=== PATIENT | male | born 1995 | race Caucasian/White ===

== ENCOUNTER 2020-12-08 15:07 | Emergency (ER) | payer OTHER ==
[~2020-12-08] VITALS: Ht 170.2 cm; Wt 95.3 kg
--- NOTE | ~2020-12-08 | EMS ---
[address] [place] [address] EMS Patient Care Report Name: FLORESITA LAGUERRE [id number] Admission: 12/08/20 Attend Phys: Discharge: Date of : [birth year] Report #: [id number] THIS REPORT FOR: //name// Report Transmitted: 12/08/2020 17:19 EMS Care Summary [facility] [place] Incident [id number] @ 12/08/2020 14:41 Incident Location [address] [place] [address] Patient Floresita Laguerre Male, 25 Years 1995 Patient Address [address] [place] [address] Patient History Migraine, unspecified, intractable, without status migrainosus, Patient Allergies No known allergies, Chief Complaint Headache Disposition Transported No Lights/[place] Dispatch Reason Psychiatric Problem/Abnormal Behavior/Suicide Attempt Transported To [facility] Narrative [facility] responded without delay to the [facility] [place] for a staged medical call. Arrived on scene without incident. Arrived to find the patient is a 25 Y/O male ambulating outside with police at his side. The patient is alert and oriented, GCS is documented. The patient is calm and cooperative with EMS staff. The patients airway is patent, breathing spontaneously with an adequate rate and depth. Circulation is present, skin condition is documented. The [address] [place] [address] EMS Patient Care Report Name: FLORESITA LAGUERRE Room: [facility]#: [id number] Admission: 12/08/20 Attend Phys: Discharge: Date of : [birth year] Report #: [id number] patient reports that he has a headache and also wants to kill himself. The patient reports that he has had a headache for several weeks. The patient denies any recent trauma to his head and reports that he is unsure why he has the pain. The patient reports that he thinks he has a history of migraines. The patient reports that he also feels like killing himself but does not have a plan. The patient reports that he started to feel suicidal today. The patient reports that he is not sure why he feels suicidal. The patient did not report any specific incident that triggered him to feel bad. The patient denies thoughts of wanting to harm others. The patient denies having visual or auditory hallucinations. The patient denies ever attempting to harm himself in the past but reports that he has felt suicidal in the past. The patient is assisted into the ambulance and placed on the cot. The patient is secured to the cot with all safety restraints and covered with a blanket for comfort. The patient is placed on the monitor to obtain vital signs. The patients vital signs and overall condition are monitored and remains stable during the entire transport. The patient denies any further complaints and continues to rest on the cot in no acute distress. The patients medical history is obtained and reviewed with the patient. Radio report called to [facility] without incident. Arrived at the receiving facility without incident. The patient is removed from the ambulance and escorted inside without incident. The patient is transferred from EMS cot to ER cart without incident. RN at the bedside to obtain report and assume care of the patient. RN requested nothing further. The patient remains in stable condition. [facility] cleared and returned to service. Initial Vitals @15:00Pain: 04/04, @14:43Pain: 03/05, @14:49SpO2: 99, @14:52SpO2: 99, @14:57SpO2: 100, @14:49P: 85,R: 17,BP: 116/77, @15:02P: 70,R: 17,BP: 112/56, @14:49GCS: 15, @15:02GCS: 15, @14:43 Assessments @14:43MENTAL:SKIN:HEENT:LUNG SOUNDS:ABDOMEN:PELVIS//GI:EXTREMITIES:PULSE:NEURO: [place] [address] EMS Patient Care Report Name: FLORESITA LAGUERRE Room: [facility]#: [id number] Admission: 12/08/20 Attend Phys: Discharge: Date of : [birth year] Report #: [id number] 14:38,Call Received 14:38,Dispatch Notified 14:38,Psap Call 14:41,Dispatched 14:41,En Route 14:41,On Scene 14:43,At Patient 14:43,BP: / M,PULSE: ,RR: R,SPO2: Ox,ETCO2: ,BG: ,PAIN: 4,GCS: , 14:43,BP: / M,PULSE: ,RR: R,SPO2: Ox,ETCO2: ,BG: ,PAIN: ,GCS: , 14:49,BP: / M,PULSE: ,RR: R,SPO2: 99 Ox,ETCO2: ,BG: ,PAIN: ,GCS: , 14:49,BP: 116/77 M,PULSE: 85,RR: 17 R,SPO2: Ox,ETCO2: ,BG: ,PAIN: ,GCS: , 14:49,BP: / M,PULSE: ,RR: R,SPO2: Ox,ETCO2: ,BG: ,PAIN: ,GCS: 15, 14:51,Depart Scene 14:52,BP: / M,PULSE: ,RR: R,SPO2: 99 Ox,ETCO2: ,BG: ,PAIN: ,GCS: , 14:57,BP: / M,PULSE: ,RR: R,SPO2: 100 Ox,ETCO2: ,BG: ,PAIN: ,GCS: , 15:00,BP: / M,PULSE: ,RR: R,SPO2: Ox,ETCO2: ,BG: ,PAIN: 5,GCS: , 15:02,BP: 112/56 M,PULSE: 70,RR: 17 R,SPO2: Ox,ETCO2: ,BG: ,PAIN: ,GCS: , 15:02,BP: / M,PULSE: ,RR: R,SPO2: Ox,ETCO2: ,BG: ,PAIN: ,GCS: 15, 15:04,At Destination 15:18,Call Closed Disclaimer v1.1 Copyright 2020 [email or web address] This EMS Care Summary contains data elements from the applicable legal record (which may be displayed differently). It is designed to provide pertinent information for the following purposes: continuity of care, clinical quality, and state data reporting. The complete legal record is available to ED staff and administrators of the receiving hospital in [employer] Patient Tracker. All data is provided "as is."
[~2020-12-08 15:07] MED LIST: NOHOMEMEDICATIONS
[2020-12-08 15:42] LABS: ABSOLUTE EOSINOPHILS 0.2 thou/uL (0.0-0.7); ABSOLUTE LYMPHOCYTES 1.4 thou/uL (0.8-5.3); ABSOLUTE MONOCYTES 0.2 thou/uL (0.0-1.2); ABSOLUTE NEUTROPHILS 3.9 thou/uL (1.6-8.1); BASOPHILS 0.7 %; EOSINOPHILS 3.5 %; HEMATOCRIT 41.4 % (42.0-52.0); HEMOGLOBIN 13.6 gm/dL (14.0-18.0); LYMPHOCYTES 24.5 %; MCH 28.7 pg (26.0-34.0); MCHC 32.8 g/dL (28.0-37.0); MCV 87.6 fL (80.0-100.0); MONOCYTES 4.2 %; MPV 7.5 fl. (7.2-11.1); NUCLEATED RBCS 0 /100WBC; PLATELET COUNT* 287 thou/uL (150-400); POLYS 67.1 %; RBC 4.73 mil/uL (4.50-6.00); RDW-CV 13.5 % (10.5-14.5); WBC 5.8 thou/uL (4.0-11.0)
[2020-12-08 15:53] LABS: CALCIUM 8.8 mg/dL (8.5-10.1); POTASSIUM 3.5 mmol/L (3.5-5.1)
[2020-12-08 15:57] LABS: ALBUMIN 3.8 g/dL (3.4-5.0); ALCOHOL < 10 mg/dL (<10); SALICYLATE < 2.8 mg/dL (2.8-20.0); TOTAL BILIRUBIN 0.3 mg/dL (<0.1-1.0); TOTAL PROTEIN 7.5 g/dL (6.4-8.2)
[2020-12-08 15:58] LABS: ACETAMINOPHEN < 2 ug/mL (10-30)
[2020-12-08 16:22] LABS: URINE BILIRUBIN NEGATIVE (Negative); URINE BLOOD NEGATIVE (Negative); URINE CLARITY CLEAR; URINE COLOR YELLOW; URINE GLUCOSE-RANDOM NEGATIVE (Negative); URINE KETONES NEGATIVE (Negative); URINE LEUKOCYTES-REFLEX NEGATIVE (Negative); URINE NITRITE-REFLEX NEGATIVE (Negative); URINE PROTEIN NEGATIVE (Negative); URINE SPECIFIC GRAVITY 1.025 (1.005-1.030); URINE UROBILINOGEN 0.2 E.U./dl (0.2-1.0)
[2020-12-08 16:31] LABS: AMP/METHAMP Negative (Negative); BARBITURATES Negative (Negative); BENZODIAZEPINES Negative (Negative); COCAINE Negative (Negative); METHADONE Negative (Negative); OPIATES Negative (Negative); PCP Negative (Negative); THC Negative (Negative)
[2020-12-08 21:51] VITALS: BP 120/67
== END 2020-12-08 21:51 | disposition home or self-care (01) ==
LOC: M.ERS 15:07
PROVIDERS: Emergency Medicine Emergency Medical Services
DX: R45.851 Suicidal ideations (principal)

== ENCOUNTER 2021-11-03 19:31 | Emergency (ER) | payer MEDICAID ==
[~2021-11-03] VITALS: Ht 170.2 cm; Wt 104.3 kg
[2021-11-03 20:26] LABS: INFLUENZA A ANTIGEN Negative (Negative); INFLUENZA B ANTIGEN Negative (Negative)
[2021-11-04 00:56] LABS: MPV 7.6 fl. (7.2-11.1); NUCLEATED RBCS 0 /100WBC
[2021-11-04 00:58] LABS: HEMATOCRIT 39.3 % (42.0-52.0); HEMOGLOBIN 12.7 gm/dL (14.0-18.0); MCH 28.2 pg (26.0-34.0); MCHC 32.4 g/dL (28.0-37.0); PLATELET COUNT* 319 thou/uL (150-400); RBC 4.51 mil/uL (4.50-6.00); RDW-CV 13.2 % (10.5-14.5); WBC 7.4 thou/uL (4.0-11.0)
[2021-11-04 01:00] LABS: CALCIUM 8.6 mg/dL (8.5-10.1); CREATININE 0.9 mg/dL (0.6-1.3); POTASSIUM 3.1 mmol/L (3.5-5.1)
[2021-11-04 01:05] LABS: ALBUMIN 3.4 g/dL (3.4-5.0); TOTAL BILIRUBIN 0.5 mg/dL (<0.1-1.0); TOTAL PROTEIN 7.6 g/dL (6.4-8.2)
[2021-11-04 01:33] LABS: ABSOLUTE BASOPHILS 0.1 thou/uL (0.0-0.2); ABSOLUTE EOSINOPHILS 1.1 thou/uL (0.0-0.7); ABSOLUTE LYMPHOCYTES 2.6 thou/uL (0.8-5.3); ABSOLUTE MONOCYTES 0.7 thou/uL (0.0-1.2); PLATELET ESTIMATE ADEQUATE
[2021-11-04] MEDS ORDERED: BACTRIM DS TAB1 EAC1 PO (02:22)
[2021-11-04 02:41] VITALS: BP 104/62
== END 2021-11-04 02:42 | disposition home or self-care (01) ==
LOC: M.ERS 19:31
PROVIDERS: Emergency Medicine
DX: L03.115 Cellulitis of right lower limb (principal); Z20.822 Contact with and (suspected) exposure to COVID-19; R51.9 Headache, unspecified